=== PATIENT | male | born 1985 | race Caucasian/White ===

== ENCOUNTER 2025-07-18 01:02 | Emergency (ER) | payer BC ==
[2025-07-18] MEDS: Alum Hydrox/Mag Hydrox/Simeth 30 ML, Lidocaine 2% 15 ML PO ONE (01:36)
[2025-07-18 01:43] LABS: BASOPHILS ABSOLUTE AUTO 0.02 10^3/uL (0.00-0.50); BASOPHILS PERCENT AUTO 0.3 % (0-1); EOSINOPHILS ABSOLUTE AUTO 0.15 10^3/uL (0.00-1.50); EOSINOPHILS PERCENT AUTO 1.9 % (0-6); IMMATURE GRAN ABSOLUTE AUTO 0.07 10^3/uL (0.00-0.49); IMMATURE GRAN PERCENT AUTO 0.9 % (0.0-4.9); LYMPHOCYTES ABSOLUTE AUTO 1.98 10^3/uL (0.60-5.00); LYMPHOCYTES PERCENT AUTO 25.3 % (24-44); MONOCYTES ABSOLUTE AUTO 0.71 10^3/uL (0.00-1.50); MONOCYTES PERCENT AUTO 9.1 % (0-10); NEUTROPHILS ABSOLUTE AUTO 4.90 x10^3/uL (1.80-8.00); NEUTROPHILS PERCENT AUTO 62.5 % (41-71); PLATELET COUNT,PLT 158 10^3/uL (150-400); RED BLOOD CELL COUNT 5.20 x10^6/uL (4.50-6.00); WHITE BLOOD CELL COUNT,WBC 7.8 10^3/uL (4.0-11.0)
[2025-07-18 01:57] LABS: ALANINE AMINOTRANSFERASE,ALT 57.0 U/L (12-78); ASPARTATE AMNIOTRANSFERASE,AST 27.0 U/L (15-37); BILIRUBIN TOTAL 0.4 mg/dL (0.0-1.0); BLOOD UREA NITROGEN,BUN 24.0 mg/dL (7-18); CARBON DIOXIDE,CO2 31.0 mmol/L (21-32); CHLORIDE,CL 102.0 mEq/L (98-106); CREATININE 1.2 mg/dL (0.7-1.3); EST CRCL DRUG DOSING (CG) 92.48 mL/min; ESTIMATED GFR 78.0 mL/min (>=60); GLUCOSE RANDOM 150.0 mg/dL (75-99); LACTIC ACID 1.3 mmol/L (0.4-2.0); POTASSIUM,K 4.1 mEq/L (3.5-5.0); PROTEIN TOTAL,TP 6.6 g/dL (6.4-8.2); SODIUM,NA 142.0 mEq/L (136-145)
[2025-07-18 02:09] LABS: INR 0.9 (0.92-1.18)
[2025-07-18] MEDS: Iopamidol 755 Mg/ML 100 ML Bottle IVPUSH ONE (02:22)
[2025-07-18 02:48] LABS: PTT,PARTIAL THROMBOPLSTIN TIME 25.4 SEC (20.0-30.0)
== END 2025-07-18 04:45 | disposition home or self-care (01) ==
LOC: CC.ED 01:02
DX: K21.9 Gastro-esophageal reflux disease without esophagitis (principal); R16.1 Splenomegaly, not elsewhere classified; Z79.899 Other long term (current) drug therapy; R79.89 Other specified abnormal findings of blood chemistry
CPT/HCPCS: 36415; 71260; 74177; 80053; 83605; 83690; 84484; 85025; 85610; 85730; 86140; 93005; 96374; 99284-25; A9270-GY; J2470; Q9967